=== PATIENT | male | born 2000 | race Caucasian/White ===

== ENCOUNTER 2020-05-26 21:01 | Emergency (ER) | payer SELFPAY ==
[~2020-05-26] VITALS: Ht 182.9 cm; Wt 104.5 kg
[~2020-05-26 21:01] MED LIST: ALBU0.632 IH; ALBU0.8322 IH; ALBU2.5V4 IH; AMOX-355 PO; BUDE10.2 IH; CLAR-31 PO; D-ME118S33 PO; LRT10T PO; PRD10T PO
[2020-05-26] MEDS ORDERED: LACTATED RINGERS 1,000 ML IV ONE ×3 (21:33→23:15)
[2020-05-26] MEDS ORDERED: RT-ALBUTEROL INHALER HFA (VENTOLIN HFA) 18 GM IH ONE (21:34)
[2020-05-26] MEDS ORDERED: RT-ALBUTEROL INHALER HFA (VENTOLIN HFA) 18 GM IH STA (21:37)
--- NOTE | 2020-05-26 21:50 | NUR ---
BLOOD CULTURE #2 DRAWN FROM [facility] ET SENT TO LAB.
[2020-05-26] MEDS ORDERED: dexAMETHasone 6 MG TAB (DECADRON) ONE (21:52)
[2020-05-26] MEDS ORDERED: dexAMETHasone 6 MG TAB (DECADRON) PO STA (22:02)
--- NOTE | 2020-05-26 22:02 | ED General ---
General Chief Complaint: Respiratory Problems Stated Complaint: HEADACHE/FEVER Source of Information: Patient Exam Limitations: No Limitations History of Present Illness Date Seen by Provider: May 26, 2020 Time Seen by Provider: 21:35 Initial Comments Here with report of fever, wheezing, cough, shortness of breath and headache. This has been going on for the last 2 to 3 days. Unsure of COVID-19 contact. 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 Denies nausea, vomiting or diarrhea but does have decreased appetite. Denies loss of taste or smell. Initial O2 sat 91% on room air with report of shortness of breath. Timing/Duration: 2-3 Days, Getting Worse Severity: Moderate Associated Systoms: Cough, Fever/Chills, Loss of Appetite; No Nausea/Vomiting; Shortness of Air, Weakness Allergies and Home Medications Allergies Coded Allergies: No Known Drug Allergies (Unverified , 02/09/12) Home Medications Budesonide/Formoterol Fumarate 10.2 Gm Hfa.aer.ad, 2 PUFF IH BID, (Reported) Clarithromycin 500 Mg Tablet, 500 MG PO BID Prescribed by: MADI CAICEDO on 03/24/152256 D-Methorphan Hb/P-Epd HCl/Bpm 118 Ml Syrup, 5 ML PO Q6H PRN for COUGH Prescribed by: MADI CAICEDO on 03/24/152256 Prednisone 10 Mg Tab, 30 MG PO DAILY Prescribed by: MADI CAICEDO on 03/24/152258 Patient Home Medication List Home Medication List Reviewed: Yes Review of Systems Review of Systems Constitutional: see HPI EENTM: nose congestion, throat pain Respiratory: short of breath, wheezing Cardiovascular: no symptoms reported Gastrointestinal: No abdominal pain, No nausea, No vomiting Genitourinary: no symptoms reported Musculoskeletal: no symptoms reported Skin: no symptoms reported Psychiatric/Neurological: Headache; Denies Weakness All Other Systems Reviewed Negative Unless Noted: Yes Past Zjebmro-Vbyngi-Mxefki Hx Past Med/Social Hx: Reviewed Nursing Past Med/Soc Hx Patient Social History Alcohol Use: Denies Use Smoking Status: Never a Smoker Immunizations Up To Date PED Vaccines UTD: Yes Past Medical History Surgeries: No Respiratory: Yes Asthma Cardiac: No Neurological: No Reproductive Disorders: No Gastrointestinal: Yes Abdominal Hernia Musculoskeletal: No Endocrine: No Cancer: No Psychosocial: Yes Family Medical History Reviewed Nursing Family Hx Physical Exam-Suspected Sepsis Physical Exam Vital Signs Vital Signs - First Documented 05/26/20 21:30 Temp 36.2 Pulse 130 Resp 22 B/P (MAP) 121/97 (105) Pulse Ox 95 O2 Delivery Nasal Cannula O2 Flow Rate 1.00 Capillary Refill : Height, Weight, BMI Height: 6'0" Weight: 160lbs. oz. 72.051672pp; BMI Method:Stated General Appearance: WD/WN, Mild Distress HEENT: PERRL/EOMI, Pharyngeal Erythema Neck: Non Tender, Supple Respiratory: Decreased Breath Sounds, Wheezing (Bilateral upper and lower) Cardiovascular: No Murmur, Tachycardia Gastrointestinal: Non Tender, Soft Back: Normal Inspection, No CVA Tenderness, No Vertebral Tenderness Extremity: Normal Range of Motion, Non Tender Neurologic/Psychiatric: Alert, Oriented x3 Skin: normal color, warm/dry Focused Exam Lactate Level 05/26/20 21:45: Lactic Acid Level 0.88 Lactic Acid Level Laboratory Tests Test 05/26/20 21:45 Lactic Acid Level 0.88 MMOL/L (0.50-2.00) Progress/Results/Core Measures Suspected Sepsis SIRS Temperature: Pulse: Respiratory Rate: Laboratory Tests 05/26/20 21:45: White Blood Count 13.4H Blood Pressure / Mean: 05/26/20 21:45: Lactic Acid Level 0.88 Laboratory Tests 05/26/20 21:45: Creatinine 0.99, Platelet Count 291, Total Bilirubin 0.7 Results/Orders Lab Results Laboratory Tests Test 05/26/20 21:45 Range/Units White Blood Count 13.4 H 4.3-11.0 10^3/uL Red Blood Count 5.03 4.30-5.52 10^6/uL Hemoglobin 15.8 13.3-17.7 g/dL Hematocrit 47 40-54 % Mean Corpuscular Volume 93 80-99 fL Mean Corpuscular Hemoglobin 31 25-34 pg Mean Corpuscular Hemoglobin Concent 34 32-36 g/dL Red Cell Distribution Width 13.0 10.0-14.5 % Platelet Count 291 130-400 10^3/uL Mean Platelet Volume 9.0 9.0-12.2 fL Immature Granulocyte % (Auto) 0 % Neutrophils (%) (Auto) 80 H 42-75 % Lymphocytes (%) (Auto) 10 L 12-44 % Monocytes (%) (Auto) 6 0-12 % Eosinophils (%) (Auto) 4 0-10 % Basophils (%) (Auto) 1 0-10 % Neutrophils # (Auto) 10.7 H 1.8-7.8 10^3/uL Lymphocytes # (Auto) 1.3 1.0-4.0 10^3/uL Monocytes # (Auto) 0.8 0.0-1.0 10^3/uL Eosinophils # (Auto) 0.5 H 0.0-0.3 10^3/uL Basophils # (Auto) 0.1 0.0-0.1 10^3/uL Immature Granulocyte # (Auto) 0.0 0.0-0.1 10^3/uL D-Dimer <= 0.27 0.00-0.49 UG/ML Sodium Level 142 135-145 MMOL/L Potassium Level 3.9 3.6-5.0 MMOL/L Chloride Level 107 98-107 MMOL/L Carbon Dioxide Level 26 21-32 MMOL/L Anion Gap 9 5-14 MMOL/L Blood Urea Nitrogen 9 7-18 MG/DL Creatinine 0.99 0.60-1.30 MG/DL Estimat Glomerular Filtration Rate > 60 BUN/Creatinine Ratio 9 Glucose Level 110 H 70-105 MG/DL Lactic Acid Level 0.88 0.50-2.00 MMOL/L Calcium Level 9.3 8.5-10.1 MG/DL Corrected Calcium 9.1 8.5-10.1 MG/DL Total Bilirubin 0.7 0.1-1.0 MG/DL Aspartate Amino Transf (AST/SGOT) 18 5-34 U/L Alanine Aminotransferase (ALT/SGPT) 15 0-55 U/L Alkaline Phosphatase 70 40-136 U/L C-Reactive Protein High Sensitivity 5.45 H 0.00-0.50 MG/DL Total Protein 7.2 6.4-8.2 GM/DL Albumin 4.3 3.2-4.5 GM/DL Procalcitonin 0.03 <0.10 NG/ML Coronavirus 2019 ([facility]) Negative Negative Micro Results Microbiology 05/26/20 Influenza Types A,B Antigen ([place]) - Final, Complete My Orders Orders - LUIS ALFREDO SANTANA MD Influenza A And B Antigens (05/26/20 21:35) Covid 19 Inhouse Test (05/26/20 21:35) Cbc With Automated Diff (05/26/20 21:35) Comprehensive Metabolic Panel (05/26/20 21:35) Hs C Reactive Protein (05/26/20 21:35) Fibrin Degradation Products (05/26/20 21:35) Ed Iv/Invasive Line Start (05/26/20 21:35) Lactated Ringers (Lr 1000 Ml Iv Solution (05/26/20 21:45) Lactated Ringers (Lr 1000 Ml Iv Solution (05/26/20 21:33) Albuterol Inhaler (Ventolin Hfa) (05/26/20 21:37) Albuterol Inhaler (Ventolin Hfa) (05/26/20 21:34) Dexamethasone Injection (Decadron Inje (05/26/20 21:51) Chest 1 View, Ap/Pa Only (05/26/20 21:55) Lactic Acid Analyzer (05/26/20 21:55) Procalcitonin (Pct) (05/26/20 21:55) Blood Culture (05/26/20 21:55) Dexamethasone Tablet (Decadron Tablet) (05/26/20 21:52) Dexamethasone Tablet (Decadron Tablet) (05/26/20 22:02) Lactated Ringers (Lr 1000 Ml Iv Solution (05/26/20 23:15) Ceftriaxone For Iv Use (Rocephin For I (05/26/20 23:14) Medications Given in ED Current Medications Medications Dose Ordered Sig/Dany Route Start Time Stop Time Status Last Admin Dose Admin Lactated Ringer's 1,000 ml @ 0 mls/hr Q0M ONCE IV 05/26/20 21:45 05/26/20 21:46 DC 05/26/20 21:47 0 MLS/HR Lactated Ringer's 1,000 ml @ 0 mls/hr Q0M ONCE IV 05/26/20 23:15 05/26/20 23:16 DC 05/26/20 23:20 0 MLS/HR Vital Signs/I&O 05/26/20 21:30 Temp 36.2 Pulse 130 Resp 22 B/P (MAP) 121/97 (105) Pulse Ox 95 O2 Delivery Nasal Cannula O2 Flow Rate 1.00 Capillary Refill : Progress Note : Progress Note Seen and evaluated. IV, labs, COVID-19 and influenza swabs ordered. LR 1 L bolus. Albuterol MDI via spacer 2 puffs x 1 now. Patient improved slightly with O2 sat at 92 to 93% after albuterol. Still feels a little short of breath. O2 had been started at 2 L via nasal cannula and continued at 1 L with O2 sat 94 to 95%. Chest x-ray, blood cultures and lactic acid ordered. Decadron 6 mg p.o. ordered. Monitor patient. 0042: Patient received second liter of LR. Also received second dose of albuterol. He was able to come off oxygen with O2 sat at 92%. I did discuss with him concerns regarding current illness and current O2 saturations. Offered admission which patient declined. Given his current O2 sat that he is doing okay and he will have albuterol inhaler for home and he has been started on steroids, outpatient therapy may be tried but patient was cautioned that this may fail and he will need to return. Patient verbalized understanding. Discharged home with return precautions. Patient verbalized understanding instructions and agreement with plan. He did receive 1 g of Rocephin IV and we will continue outpatient treatment with azithromycin and steroids. Diagnostic Imaging Diagonstic Imaging: Xray Plain Films/CT/US/NM/MRI: chest Comments Bibasilar atelectasis Departure Impression Primary Impression: Bronchitis Additional Impression: Person under investigation for COVID-19 Disposition: 01 HOME, SELF-CARE Condition: Stable Departure-Patient Inst. Decision time for Depature: 00:45 Referrals: NO,LOCAL PHYSICIAN (PCP/Family) Primary Care Physician Patient Instructions: Acute Bronchitis, Adult (DC), Coronavirus Disease 2019 (COVID-19) (DC) Add. Discharge Instructions: All discharge instructions reviewed with patient and/or family. Voiced understanding. Drink plenty of fluids and get plenty of rest. You will need to remain isolated until test results are noted. If they are negative, you will need remain isolated for 24 hours days after symptoms resolve. If they are positive, the health department will call you and direct quarantine/isolation timeframe. You may take ibuprofen 600 mg every 8 hours as needed for fever or pain. You may take Tylenol/acetaminophen 1000 mg every 8 hours as needed for fever or pain. You may use your albuterol inhaler 2 puffs every 2-4 hours as needed for wheezing or shortness of breath. Take other medications as directed. You should check your O2 saturations while resting and return to the ER if they are less than 90% if you are able. Return for worse pain, fever, vomiting, weakness, breathing problems or other concerns as needed. Do not hesitate to return if you are becoming short of breath, wheezing or if you are concerned about your oxygen saturation. Scripts Prednisone (Prednisone) 20 Mg Tab 40 MG PO DAILY, #10 TAB 0 Refills Prov: LUIS ALFREDO SANTANA MD 05/27/20 Azithromycin (Azithromycin) 250 Mg Tablet 250 MG PO UD, #6 TAB TAKE 2 TABLETS ON DAY ONE THEN TAKE 1 TABLET DAILY FOR FOUR MORE DAYS Prov: LUIS ALFREDO SANTANA MD 05/27/20 LUIS ALFREDO SANTANA MD May 26, 2020 22:02
[2020-05-26 22:11] LABS: ALBUMIN 4.3 GM/DL (3.2-4.5); CHLORIDE 107 MMOL/L (98-107); POTASSIUM 3.9 MMOL/L (3.6-5.0); SODIUM 142 MMOL/L (135-145)
[2020-05-26 22:12] LABS: CALCIUM 9.3 MG/DL (8.5-10.1)
[2020-05-26 22:13] LABS: GLUCOSE 110 MG/DL (70-105)
[2020-05-26 22:14] LABS: TOTAL PROTEIN 7.2 GM/DL (6.4-8.2)
[2020-05-26 22:15] LABS: BILIRUBIN,TOTAL 0.7 MG/DL (0.1-1.0); CARBON DIOXIDE 26 MMOL/L (21-32)
[2020-05-26 22:17] LABS: ALKALINE PHOSPHATASE 70 U/L (40-136); CREATININE SERUM 0.99 MG/DL (0.60-1.30); GFR ESTIMATED > 60
[2020-05-26 22:18] LABS: BUN/CREATININE RATIO 9
[2020-05-26 22:19] LABS: BASOPHILS # (AUTO) 0.1 10^3/uL (0.0-0.1); BASOPHILS % (AUTO) 1 % (0-10); EOSINOPHILS # (AUTO) 0.5 10^3/uL (0.0-0.3); EOSINOPHILS % (AUTO) 4 % (0-10); HEMATOCRIT 47 % (40-54); HEMOGLOBIN 15.8 g/dL (13.3-17.7); LYMPHOCYTES # (AUTO) 1.3 10^3/uL (1.0-4.0); LYMPHOCYTES % (AUTO) 10 % (12-44); MEAN CORPUSCULAR HEMOGLOBIN 31 pg (25-34); MEAN CORPUSCULAR HGB CONC 34 g/dL (32-36); MEAN CORPUSCULAR VOLUME 93 fL (80-99); MONOCYTES # (AUTO) 0.8 10^3/uL (0.0-1.0); MONOCYTES % (AUTO) 6 % (0-12); NEUTROPHILS # (AUTO) 10.7 10^3/uL (1.8-7.8); NEUTROPHILS % (AUTO) 80 % (42-75); PLATELET COUNT 291 10^3/uL (130-400); WHITE BLOOD COUNT 13.4 10^3/uL (4.3-11.0)
[2020-05-26 22:20] LABS: ALANINE AMINOTRANSFERASE 15 U/L (0-55)
[2020-05-26] MEDS ORDERED: cefTRIAXone FOR IV USE 1,000 MG in WATER (STERILE) FOR INJECTION 10 ML IV STA (23:14)
[2020-05-27] MEDS ORDERED: AZIT250T12 PO (00:47)
[2020-05-27] MEDS ORDERED: PRD20T PO (00:47)
[2020-05-27 01:05] VITALS: BP 111/67
--- NOTE | 2020-05-27 07:41 | Diagnostic Imaging Report ---
INDICATION: Shortness of breath and fever with cough and congestion. Comparison made with prior examination from 03/24/2015. FINDINGS: The heart size is normal. There are patchy bibasal infiltrates. There is no pleural effusion or pneumothorax The mediastinum is unremarkable. IMPRESSION: Patchy bibasal pulmonary infiltrates suspect for early pneumonia. Dictated by: Dictated on workstation # [id number]
== END 2020-05-27 01:06 | disposition home or self-care (01) ==
LOC: EDUNIT# 21:01 → ER 21:04
DX: J40 Bronchitis, not specified as acute or chronic (principal); Z20.822 Contact with and (suspected) exposure to COVID-19; Z79.52 Long term (current) use of systemic steroids
CPT/HCPCS: 71045; 80053; 83605; 84145; 85025; 85379; 86141; 87040; 87804; 99284; U0002; 36415; 87635